=== PATIENT | female | born 1955 | race Caucasian/White ===

== ENCOUNTER 2017-01-22 16:07 | Inpatient (IN) | payer OTHER ==
[~2017-01-22] VITALS: Ht 157.5 cm; Wt 65.1 kg
--- NOTE | ~2017-01-22 | EKG ---
[address] [place] [address] ELECTROCARDIOGRAM REPORT Name: LAKHWINDER HENDERSON Room #: 441-P ADM IN M.R.#: [id number] Admission: 01/22/17 Attend Phys: Miguel Angel Murray MD, FAAF Discharge: Date of : 51 Report #: [id number] THIS REPORT FOR: //name// [facility] ED Test Date: 2017-01-22 Test Time: 16:43:16 Pat Name: LAKHWINDER HENDERSON Department: Room: [facility] Gender: F Loop Tacker: Sharri : 1955 Requested By: Gabo Wilson Order Number: [id number] MD: Tito Kennedy Measurements Intervals [place] Rate: 72 P: 24 UT: 147 QRS: 11 QRSD: 82 T: 30 QT: 394 QTc: 432 Interpretive Statements Sinus rhythm Probable anteroseptal infarct, old Compared to ECG 11/16/2012 12:28:07 No significant changes Electronically Signed On 01-24-2017 12:40:16 CDT by Tito Kennedy [email or web address] <ELECTRONICALLY SIGNED> By: Tito Kennedy MD, [facility] 01/24/17 1240 42 42 Tito Kennedy MD, [facility] /EPI
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
[~2017-01-22 16:07] MED LIST: ACETAMINOPHEN325 M1 PO; ACID CONTROL20 MG PO; ADULT LOW DOSE81 MG PO; ALDACTONE25 MG PO; ALPRAZOLAM 0.50.5 M1 PO; ALPRAZOLAM 0.50.5 MG PO; ALPRAZOLAM PO; ASA5UEC PO; BACTRIM DS TAB1 EACH PO; BETASERON0.3 MG/SY1 SUBQ; CARBAMAZEPINE200 M2 PO; CARBAMAZEPINE200 M4 PO; CARVEDILOL3.125 MG PO; CEFTIN500 MG PO; CELEBREX 200 M200 MG PO; CLONIDINE0.1; COLACE 100 MG100 MG PO; COREG PO; COZAAR 25 MG TA25 MG PO; CRESTOR40 MG PO; DIOVAN40 MG PO; DOLOPHINE HCL5 MG PO; DURAGESIC1 EAC2 TRANSDERM; EFFIENT10 MG PO; FAMOTIDINE20 MG PO; LISINOPRIL20 MG PO; LISINOPRIL40 MG PO; LYRICA 75 MG CA75 MG PO; LYRICA100 MG PO; METHADONE HCL 110 M1 PO; METHADONE HCL5 MG PO; NEURONTIN 300M300 M2 PO; NITROSTAT0.4 MG SL; OPANA ER30 M1 PO; OXECTA7.5 MG PO; OXYCODON-ACETA1 EAC1 PO; OXYCODONE HCL5 M1 PO; OXYCODONE-ACET1 EACH PO; OXYCONTIN10 MG PO; OXYCONTIN20 M1 PO; PERCOCET 10-321 EACH PO; PERCOCET 7.5-31 EACH PO; POTASSIUM20 PO; PREDNISONE 20 M20 M1 PO; REMERON15 MG PO; RESTORIL15 MG PO; ROXICODONE5 MG; TAMSULOSIN HCL0.4 M1 PO; TEGRETOL XR200 MG PO; TRAZODONE 150150 M1 PO; TUMS CHEWA500 MG/11 PO; VOLTAREN GEL 1100 G1 TOP; ZOFRAN4 MG PO; ZOLOFT100 MG PO; ZOLOFT25 MG PO
[2017-01-22 16:13] VITALS: BP 194/67
[2017-01-22 16:33] LABS: ABSOLUTE NEUTROPHILS 8.3 thou/uL (1.4-8.2); BASOPHILS 0.7 % (0.0-2.0); HEMATOCRIT 41.3 % (37.0-47.0); LYMPHOCYTES 12.1 % (24.0-44.0); MCHC 33.9 g/dL (28.0-37.0); MCV 85.4 fL (80.0-100.0); MONOCYTES 8.2 % (1.0-8.0); PLATELET COUNT 229 thou/uL (150-400); RBC 4.84 mil/uL (4.20-5.00); WBC 10.9 thou/uL (4.0-11.0)
[2017-01-22 16:34] LABS: MANUAL DIFF NO
[2017-01-22 16:46] LABS: ANION GAP 9 mmol/L (7-16); BUN 14 mg/dL (7-18); CHLORIDE 100 mmol/L (98-107); CO2 30 mmol/L (21-32); CREATININE 1.1 mg/dL (0.6-1.0); GLUCOSE 101 mg/dL (74-106); POTASSIUM 3.2 mmol/L (3.5-5.1); SODIUM 139 mmol/L (136-145)
[2017-01-22 16:53] LABS: ALBUMIN 3.9 g/dL (3.4-5.0); ALKALINE PHOSPHATASE 98 U/L (46-116); DIRECT BILIRUBIN 0.2 mg/dL (<0.1-0.3); SGOT 22 U/L (15-37); SGPT 20 U/L (30-65); TOTAL BILIRUBIN 1.1 mg/dL (<0.1-1.0); TOTAL PROTEIN 7.7 g/dL (6.4-8.2); TROPONIN-I < 0.04 ng/mL (<0.04-0.07)
[2017-01-22 17:31] LABS: URINE BILIRUBIN NEGATIVE (Negative); URINE BLOOD TRACE (Negative); URINE COLOR YELLOW; URINE GLUCOSE-RANDOM* NEGATIVE (Negative); URINE KETONES NEGATIVE (Negative); URINE NITRITE NEGATIVE (Negative); URINE PROTEIN (DIPSTICK) NEGATIVE (Negative); URINE SPECIFIC GRAVITY <= 1.005 (1.003-1.035)
[2017-01-22] MEDS ORDERED: TAMSULOSIN HCL0.4 MG PO (17:31)
[2017-01-22] MEDS ORDERED: SERTRALINE HCL50 MG PO (17:31)
[2017-01-22] MEDS ORDERED: CRESTOR10 MG PO (17:31)
[2017-01-22] MEDS ORDERED: PERCOCET 7.5-31 EACH PO (17:32)
[2017-01-22] MEDS ORDERED: APAP500 PO (17:33)
[2017-01-22] MEDS ORDERED: MUCINEX TA600 MG/TA2 PO (17:34)
[2017-01-22] MEDS ORDERED: [UNRECOGNIZED DRUG - OTHER] PO (17:35)
[2017-01-22 17:37] LABS: BACTERIA None Seen /HPF (None Seen); CASTS None Seen /LPF (None Seen); CRYSTALS None Seen /LPF (None Seen); SQUAMOUS 0-3 Few /LPF (0-3); URINE RBC None Seen /HPF (0-2); URINE WBC 0-5 Rare /HPF (0-5)
[2017-01-22 20:10] VITALS: BP 137/57
[2017-01-23 04:25] VITALS: BP 146/80
[2017-01-23 05:18] VITALS: BP 153/67
[2017-01-23 06:03] LABS: HEMATOCRIT 38.4 % (37.0-47.0); MCHC 33.9 g/dL (28.0-37.0); MCV 85.5 fL (80.0-100.0); RBC 4.49 mil/uL (4.20-5.00); RDW 14.4 % (10.5-14.5); WBC 6.3 thou/uL (4.0-11.0)
[2017-01-23 06:25] LABS: ALBUMIN 3.5 g/dL (3.4-5.0); CALCIUM 8.6 mg/dL (8.5-10.1); POTASSIUM 3.1 mmol/L (3.5-5.1)
[2017-01-23 07:12] VITALS: BP 149/72
[2017-01-23 11:14] VITALS: BP 135/60
[2017-01-23 15:17] VITALS: BP 149/65
[2017-01-23 19:47] VITALS: BP 145/56
[2017-01-24 03:36] LABS: HEMATOCRIT 34.2 % (37.0-47.0); HEMOGLOBIN 11.7 gm/dL (12.0-15.0); MCH 29.1 pg (26.0-34.0); MCHC 34.2 g/dL (28.0-37.0); MCV 85.1 fL (80.0-100.0); PLATELET COUNT 193 thou/uL (150-400); RBC 4.01 mil/uL (4.20-5.00); RDW 14.2 % (10.5-14.5); WBC 5.1 thou/uL (4.0-11.0)
[2017-01-24 03:48] LABS: MANUAL DIFF YES
[2017-01-24 04:10] LABS: CALCIUM 8.3 mg/dL (8.5-10.1); CREATININE 1.1 mg/dL (0.6-1.0); POTASSIUM 3.2 mmol/L (3.5-5.1); TOTAL BILIRUBIN 0.7 mg/dL (<0.1-1.0); TOTAL PROTEIN 6.3 g/dL (6.4-8.2)
[2017-01-24 04:37] LABS: ABSOLUTE NEUTROPHILS 2.8 thou/uL (1.4-8.2); LARGE PLATELETS FEW; TOTAL CELL COUNT 100
[2017-01-24 06:25] VITALS: BP 151/79
[2017-01-24 08:00] VITALS: BP 143/63
[2017-01-24 12:00] VITALS: BP 153/68
[2017-01-24 16:00] VITALS: BP 176/89
[2017-01-24 19:46] VITALS: BP 188/89
[2017-01-25 05:08] VITALS: BP 155/75
[2017-01-25 06:28] LABS: CALCIUM 8.3 mg/dL (8.5-10.1); CREATININE 0.9 mg/dL (0.6-1.0); POTASSIUM 3.1 mmol/L (3.5-5.1)
[2017-01-25 07:02] VITALS: BP 175/70
[2017-01-25 11:45] VITALS: BP 152/78
[2017-01-25 15:48] VITALS: BP 154/75
[2017-01-25 20:45] VITALS: BP 179/99
[2017-01-26 00:33] VITALS: BP 154/69
[2017-01-26 05:18] VITALS: BP 152/80
[2017-01-26 06:20] LABS: CALCIUM 8.8 mg/dL (8.5-10.1); POTASSIUM 3.6 mmol/L (3.5-5.1)
[2017-01-26 08:00] VITALS: BP 157/80
[2017-01-26 12:07] VITALS: BP 154/83
[2017-01-26 13:04] VITALS: BP 154/83
[2017-01-26 18:00] VITALS: BP 154/83
== END 2017-01-26 14:46 | disposition home or self-care (01) | DRG 178 ==
LOC: ER 16:07 → EROBS 17:56 → 4S 17:56
PROVIDERS: Family Medicine; Nurse Practitioner
DX: J69.0 Pneumonitis due to inhalation of food and vomit (principal); E44.1 Mild protein-calorie malnutrition; G35 Multiple sclerosis; I10 Essential (primary) hypertension; I25.10 Atherosclerotic heart disease of native coronary artery without angina pectoris; K59.00 Constipation, unspecified; E87.6 Hypokalemia; G50.0 Trigeminal neuralgia; I25.2 Old myocardial infarction; Z88.6 Allergy status to analgesic agent
CPT/HCPCS: 10100

== ENCOUNTER → 2020-03-21 | Outpatient (CLI) | payer OTHER ==
[~2020-03-21] MED LIST changes: +APAP500 PO; +CRESTOR10 MG PO; +MUCINEX TA600 MG/TA2 PO; +SERTRALINE HCL50 MG PO; +TAMSULOSIN HCL0.4 MG PO; +[UNRECOGNIZED DRUG - OTHER] PO
== END ==
LOC: SJCVCIMAG 03-12 09:29
PROVIDERS: ATTEND Internal Medicine Cardiovascular Disease
DX: I35.8 Other nonrheumatic aortic valve disorders (principal); I25.10 Atherosclerotic heart disease of native coronary artery without angina pectoris; I10 Essential (primary) hypertension; R94.31 Abnormal electrocardiogram [ECG] [EKG]; E78.00 Pure hypercholesterolemia, unspecified; K21.9 Gastro-esophageal reflux disease without esophagitis; E78.5 Hyperlipidemia, unspecified; Z79.899 Other long term (current) drug therapy; Z87.891 Personal history of nicotine dependence

== ENCOUNTER 2020-09-20 12:14 | Inpatient (IN) | payer OTHER ==
[~2020-09-20] VITALS: Ht 157.5 cm; Wt 58.1 kg
[2020-09-20 12:15] VITALS: BP 189/70
[2020-09-20 12:57] LABS: BASOPHILS 0.8 % (0.0-2.0); EOSINOPHILS 0.3 % (0.0-3.0); HEMATOCRIT 41.1 % (37.0-47.0); HEMOGLOBIN 13.8 gm/dL (12.0-15.0); MCHC 33.6 g/dL (28.0-37.0); MCV 86.4 fL (80.0-100.0); MONOCYTES 6.6 % (1.0-8.0); PLATELET COUNT 243 thou/uL (150-400); POLYS 76.3 % (36.0-66.0); RBC 4.76 mil/uL (4.20-5.00); RDW 13.8 % (10.5-14.5); WBC 6.6 thou/uL (4.0-11.0)
[2020-09-20 13:08] LABS: CALCIUM 8.9 mg/dL (8.5-10.1); MAGNESIUM 1.7 mg/dL (1.8-2.4); POTASSIUM 3.7 mmol/L (3.5-5.1)
[2020-09-20 13:14] LABS: URINE BILIRUBIN NEGATIVE (Negative); URINE BLOOD NEGATIVE (Negative); URINE CLARITY CLEAR; URINE COLOR YELLOW; URINE GLUCOSE-RANDOM* NEGATIVE (Negative); URINE KETONES NEGATIVE (Negative); URINE LEUKOCYTES-REFLEX TRACE (Negative); URINE NITRITE-REFLEX NEGATIVE (Negative); URINE PROTEIN (DIPSTICK) NEGATIVE (Negative); URINE UROBILINOGEN 0.2 E.U./dl (0.2-1.0)
[2020-09-20 20:26] VITALS: BP 185/81
[2020-09-21 08:02] VITALS: BP 137/71
[2020-09-21 10:04] LABS: CHOLESTEROL 228 mg/dL (<200); HDL CHOLESTEROL 47 mg/dL (>40); LDL CHOLESTEROL 153 mg/dL (<100); TC:HDL 4.9 Ratio (Not establshd); TRIGLYCERIDE 142 mg/dL (<150); VLDL 28 mg/dL (<40)
[2020-09-21 10:07] VITALS: BP 137/71
--- NOTE | 2020-09-21 10:51 | NUR ---
ATTEMPTED TO CALL REPORT, WAS ADVISED THEY WOULD CALL BACK
--- NOTE | 2020-09-21 11:16 | EKG ---
[address] [place] [address] ELECTROCARDIOGRAM REPORT Name: LAKHWINDER HENDERSON Room #: 170-6 ADM IN M.R.#: [id number] Admission: 09/21/20 Attend Phys: Augusto Maradiaga DO Discharge: Date of : 51 Report #: [id number] [facility] ED Test Date: 2020-09-20 Test Time: 12:19:24 Pat Name: LAKHWINDER HENDERSON Department: Room: 170 Gender: F Solar Panel Installer: : 1955 Requested By: Luis Alas Order Number: [id number] MD: Ja Whipple Measurements Intervals [place] Rate: 78 P: 57 GA: 147 QRS: 48 QRSD: 85 T: 61 QT: 406 QTc: 463 Interpretive Statements Sinus rhythm Probable anteroseptal infarct, old Compared to ECG 01/22/2017 16:43:16 No significant changes Electronically Signed On 09-21-2020 11:16:39 INSPECTION MANAGER by Ja Whipple [email or web address] <ELECTRONICALLY SIGNED> By: Ja Whipple MD, [facility] 09/21/20 1116 1219 1219 Ja Whipple MD, FACC /EPI
[2020-09-21 13:30] VITALS: BP 148/48
[2020-09-21 15:43] VITALS: BP 123/53
--- NOTE | 2020-09-21 17:03 | NUR ---
Admitted pt. to floor at 1330. Pt. calm and cooperative. No complaints of pain at this time. Pt. was able to ambulate without problems with PT, PT did note change in effort and increase in HR when re-emereged onto floor. Fall precautions in place.
[2020-09-21 19:42] VITALS: BP 152/92
--- NOTE | 2020-09-22 02:39 | NUR ---
PT CARE ASSUMED WITH PT IN BED WATCHING TV.PT A/O X4.PT VERY PLEASANT AND COOPERATIVE.PT UP TO BSC WITH X1 ASSIST.PAIN MANAGED WITH OXYCODONE.FALL PREC IN PLACE.WILL CONTINUE TO MONITOR
[2020-09-22 06:20] LABS: ABSOLUTE NEUTROPHILS 5.5 thou/uL (1.4-8.2); BASOPHILS 0.2 % (0.0-2.0); HEMOGLOBIN 13.8 gm/dL (12.0-15.0); LYMPHOCYTES 15.7 % (24.0-44.0); MCH 28.6 pg (26.0-34.0); MCHC 32.8 g/dL (28.0-37.0); MCV 87.1 fL (80.0-100.0); PLATELET COUNT 243 thou/uL (150-400); POLYS 79.1 % (36.0-66.0); RBC 4.82 mil/uL (4.20-5.00); RDW 13.8 % (10.5-14.5); WBC 6.9 thou/uL (4.0-11.0)
[2020-09-22 06:34] LABS: CALCIUM 9.4 mg/dL (8.5-10.1)
[2020-09-22 07:44] VITALS: BP 166/71
--- NOTE | 2020-09-22 10:52 | NUR ---
ASSUMED CARE AT 0700. PT IS A&O X4. IV ON RIGHT FOREARM IS INTACT AND SHOWS NO SIGNS OF REDNESS OR SWELLING. PT COMPLAINS OF FEELING WEAK. BUT DENIES SOA,N,V. PT SKIN IS APPROPRIATE BUT HAS SLIGHT PINK PIGMENTATION ON FACE. SKIN IS INTACT. HEART AND LUNGS SOUNDS ARE REGULAR. FALL PRECAUTION. CALL LIGHT WITHIN REACH. WILL CONTINUE TO MONITOR PT.
[2020-09-22] MEDS ORDERED: REPATHA SU140 MG/1 M INJECTION (14:51)
[2020-09-22 15:20] VITALS: BP 125/63
[2020-09-22 19:35] VITALS: BP 148/84
--- NOTE | 2020-09-23 02:38 | NUR ---
PT CARE ASSUMED WITH PT IN BED WATCHING TV AND VERY PLEASANT TOO.PT IS UP TO BSC WITH X1 ASSIST.PT HAD OXYCODONE FOR PAIN MANAGEMENT.PT CALLS OUT APPROPRIETELY AND FALL PRECAUTION IN PLACE.PT APPEARED TO BE IN NO ACUTE DISTRESS.DENIED N/V.WILL CONTINUE TO MONITOR POC
[2020-09-23 06:05] LABS: CALCIUM 9.6 mg/dL (8.5-10.1); CREATININE 1.1 mg/dL (0.6-1.0); POTASSIUM 3.4 mmol/L (3.5-5.1)
[2020-09-23 06:11] LABS: ABSOLUTE NEUTROPHILS 4.1 thou/uL (1.4-8.2); BASOPHILS 1.3 % (0.0-2.0); HEMATOCRIT 42.6 % (37.0-47.0); HEMOGLOBIN 14.2 gm/dL (12.0-15.0); LYMPHOCYTES 33.1 % (24.0-44.0); MCH 28.9 pg (26.0-34.0); MCHC 33.3 g/dL (28.0-37.0); MONOCYTES 10.2 % (1.0-8.0); PLATELET COUNT 242 thou/uL (150-400); POLYS 53.4 % (36.0-66.0); RDW 14.1 % (10.5-14.5); WBC 7.7 thou/uL (4.0-11.0)
[2020-09-23 07:30] VITALS: BP 154/68
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
[2020-09-23 15:44] VITALS: BP 123/67
[2020-09-23 19:45] VITALS: BP 139/75
--- NOTE | 2020-09-23 20:02 | NUR ---
Assumed care of pt at 0700. Pt. calm and cooperative. No issues or complaints of pain throughout the day. Pt. did well with PT says she feels much better. Fall precautions in place.
--- NOTE | 2020-09-24 03:22 | NUR ---
ASSUMED CARE OF PT AT 1900. PT IS A/O X4 AND IS UP WITH SBA TO THE BR. PT C/O PAIN. PRN PAIN MEDICATION GIVEN DIRECTED. PT IS INDEPENDENT WITH ALL CARES AND IS PROGRESSING TOWARDS PLAN OF CARE GOALS. PLEASANT AND COOPERATIVE. STATES SHE IS LOOKING FORWARD TO GOING HOME. ROOM AIR. MS STATUS. CALL LIGHT IS WITHIN REACH. WILL CONTINUE TO MONITOR.
[2020-09-24 08:40] VITALS: BP 146/68
--- NOTE | 2020-09-24 11:53 | NUR ---
ASSUMED PT CARE THIS AM. PT VSS, A&OX4. PT PLEASANT, CALLS APPROPRIATELY WHEN NEEDED. PT COMPLAINS OF NO PAIN. PT AMBULATES TO BATHROOM. TOOK MEDS WELL WITHOUT COMPLAINT. IV PATENT. REPOSITIONS SELF.
[2020-09-24 15:40] VITALS: BP 137/36
--- NOTE | 2020-09-24 16:14 | NUR ---
PHYSICIAN INDICATED THAT PT IS PROGRESSING TOWARD GOAL OF DISCHARGING HOME. DR. RUSHING INDICATED THAT PT MAY BE MEDICALLY STABLE TO DC HOME TODAY OR TOMORROW. PT HAD INDICATED SHE WASN'T SURE SHE WANTED HH UPON DC. NO REFERRALS SENT OF THIS NOTE. PT HAS ALL RECOMMENDED DME. CM FOLLOWING REGARDING DC PLANNING.
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
[2020-09-24 19:54] VITALS: BP 128/30
--- NOTE | 2020-09-25 06:12 | NUR ---
ASSUMED CARE OF PT AT 1900HRS. PT AOX4 AND LETS NEEDS BE KNOWN. FALL PRECAUTION IN PLACE. ASSESSMENT CHARTED. PT REPORTED SOME NECKA ND HEAD PAIN. PRNS USED. NO ATAXIA NOTED. PT WAS ABLE TO SLEEP PART OF THE SHIFT.
[2020-09-25 07:29] VITALS: BP 139/72
--- NOTE | 2020-09-25 13:46 | NUR ---
Pt seen for LOS. Pt with good appetite, consuming avg of 80% at meal times. Weights appear stable. No c/o GI distress. No PU noted. Pt remains at low nutrition risk at this time.
[2020-09-25 17:29] VITALS: BP 139/72
--- NOTE | 2020-09-25 20:43 | NUR ---
PT A&OX4, VSS, DENIED PAIN. PATIENT DISCHARGED HOME PER DR RUSHING. PATIENT HAD NO SIGNS OF DISTRESS, IV REMOVED.
== END 2020-09-25 17:58 | disposition home or self-care (01) | DRG 60 ==
LOC: ER 12:14 → EROBS 20:27 → ER 20:27 → 4W 09-21 08:51 → EROBS 09-21 08:51 → 4W 09-21 13:06
PROVIDERS: Emergency Medicine; ADMIT Internal Medicine; ATTEND Internal Medicine
DX: G35 Multiple sclerosis (principal); R27.8 Other lack of coordination; I10 Essential (primary) hypertension; K59.00 Constipation, unspecified; I25.10 Atherosclerotic heart disease of native coronary artery without angina pectoris; H81.10 Benign paroxysmal vertigo, unspecified ear; E78.5 Hyperlipidemia, unspecified; Z28.21 Immunization not carried out because of patient refusal; I25.2 Old myocardial infarction; Z88.6 Allergy status to analgesic agent; Z95.5 Presence of coronary angioplasty implant and graft; Z79.899 Other long term (current) drug therapy
CPT/HCPCS: 10040

== ENCOUNTER → 2021-07-23 | Outpatient (CLI) | payer OTHER ==
[~2021-07-23] MED LIST changes: +REPATHA SU140 MG/1 M INJECTION
== END ==
LOC: SJCVCIMAG 07-01 07:45
PROVIDERS: ATTEND Internal Medicine Cardiovascular Disease
DX: I25.89 Other forms of chronic ischemic heart disease (principal); I21.9 Acute myocardial infarction, unspecified; I25.10 Atherosclerotic heart disease of native coronary artery without angina pectoris; I10 Essential (primary) hypertension; E78.00 Pure hypercholesterolemia, unspecified; K21.9 Gastro-esophageal reflux disease without esophagitis; Z88.5 Allergy status to narcotic agent; Z79.899 Other long term (current) drug therapy; Z87.891 Personal history of nicotine dependence